=== PATIENT | male | born 1995 | race Caucasian/White ===

== ENCOUNTER 2017-05-08 03:14 | Emergency (ER) | payer BC ==
[2017-05-08 03:27] VITALS: TEMP 98.4
--- NOTE | 2017-05-08 03:35 | EDPHY ---
H & P Stated Complaint: abd pain mucous in stool x2 days HPI/ROS: HPI CHIEF COMPLAINT: Abdominal pain and mucus per rectum. HISTORY OF PRESENT ILLNESS: This patient otherwise healthy 21-year-old male no significant medical history he presents emergency room with diffuse crampy abdominal pain worse in his lower abdomen and passing mucus every 20 minutes per rectum. Denies diarrhea. Denies bloody stools. He does feel nauseous. Also feels lightheadedness. No fever. He states that he was out of town at a music concert in [place] this weekend. On Monday he developed some diffuse kind of crampy abdominal pain not feel well he stop drinking alcohol. Had little p.o. food intake. Symptoms persisted with abdominal pain of the Monday he flew back to [place]. He landed in [place] at 7:00 p.m.. Continued to have mucus per rectum every 20 minutes with abdominal pain. He decided come the emergency room for evaluation. Denies fever. Denies chest pain or shortness of breath. Denies urinary symptoms. No blood per rectum. Past Medical History: Denies significant medical history Past Surgical History: Denies significant surgical history Social History: Denies daily use of drugs alcohol tobacco products. Did have alcohol this weekend. Smokes marijuana. Family History: Noncontributory ROS REVIEW OF SYSTEMS: A comprehensive 10 point review of systems is otherwise negative aside from elements mentioned in the history of present illness. Exam Constitutional appears well nontoxic, triage nursing summary reviewed, vital signs reviewed, awake/alert. Eyes normal conjunctivae and sclera, EOMI, PERRLA. HENT normal inspection, atraumatic, moist mucus membranes, no epistaxis, neck supple/ no meningismus, no raccoon eyes. Respiratory clear to auscultation bilaterally, normal breath sounds, no respiratory distress, no wheezing. Cardiovascular rate normal, regular rhythm, no murmur, no edema, distal pulses normal. Gastrointestinal soft mild tenderness to palpation diffusely, no rebound, no guarding, normal bowel sounds, no distension, no pulsatile mass. Genitourinary no CVA tenderness. Musculoskeletal no midline vertebral tenderness, full range of motion, no calf swelling, no tenderness of extremities, no meningismus, good pulses, neurovascularly intact. Skin pink, warm, & dry, no rash, skin atraumatic. Neurologic awake, alert and oriented x 3, AAOx3, moves all 4 extremities equally, motor intact, sensory intact, CN II-XII intact, normal cerebellar, normal vision, normal speech. Psychiatric normal mood/affect. Heme/Lymph/Immune no lymphadenopathy. Differential diagnosis includes but is not limited to and in no particular order : Bowel obstruction, appendicitis, gallbladder disease, diverticulitis, colitis , enteritis, perforated viscus, gastritis, GERD, esophagitis, urinary tract infection, pyelonephritis, kidney stones Medical Decision Making: Plan for this patient IV establishment IV fluid bolus , check blood work CBC and electrolytes, CT scan abdomen pelvis with IV contrast. Stool studies. Rule out colitis. Re-evaluation: CT scan of the abdomen pelvis with IV contrast The results of the study are negative for acute inflammatory process. The study was read by Dr. Angela I viewed the images myself on the PACS system. 0522: Re-examination at this time patient resting comfortably no vomiting. He was able to provide a stool sample. He understands call 24 hours about a stool results. I will start him on Flagyl given that he is having mucousy diarrhea. Mainly mucus. No blood. His blood work has been reviewed and is reassuring. CT scan does not show acute inflammatory process. No evidence colitis. However clinically may have colitis. Stool culture pending. 1st dose of Flagyl given in the emergency room. Return precautions given. He understands return emergency room if develops worsening abdominal pain fever vomiting. Source: Patient - Personal History Current Tetanus/Diphtheria Vaccine: Yes Current Tetanus Diphtheria and Acellular Pertussis (TDAP): Yes - Medical/Surgical History Hx Asthma: No Hx Chronic Respiratory Disease: No Hx Diabetes: No Hx Cardiac Disease: No Hx Renal Disease: No Hx Cirrhosis: No Hx Alcoholism: No Hx HIV/AIDS: No Hx Splenectomy or Spleen Trauma: No Other PMH: tonsils ,. wisdom teeth - Social History Smoking Status: Current some day smoker Constitutional: Initial Vital Signs Temperature (C) 36.9 C 05/08/17 03:25 Heart Rate 81 05/08/17 03:25 Respiratory Rate 18 05/08/17 03:25 Blood Pressure 156/102 H 05/08/17 03:25 O2 Sat (%) 95 05/08/17 03:25 O2 Delivery Mode Room Air Allergies/Adverse Reactions: No Known Allergies Allergy (Unverified 05/08/17 03:25) Home Medications: Medication Instructions Recorded Hydrocodone/APAP 5/325 [[place] 1 - 2 tab PO Q4H PRN #10 tab 05/08/17 5/325] METHYLPHENIDATE HCL [[place] 36 05/08/17 mg] Ondansetron HCl [Zofran] 4 mg PO Q4-6PRN PRN #10 tablet 05/08/17 metroNIDAZOLE [Flagyl 500 mg (*)] 500 mg PO BID #20 tab 05/08/17 Medical Decision Making - Data Points Laboratory Results: Laboratory Results 05/08/17 03:26 05/08/17 03:26 05/08/17 05/08/17 05/08/17 03:35 03:26 03:26 WBC 8.10 10^3/uL 10^3/uL (3.80-9.50) RBC 6.27 10^6/uL 10^6/uL (4.40-6.38) Hgb 17.7 g/dL H g/dL (13.7-17.5) Hct 51.9 % H % (40.0-51.0) MCV 82.8 fL fL (81.5-99.8) MCH 28.2 pg pg (27.9-34.1) MCHC 34.1 g/dL g/dL (32.4-36.7) RDW 12.7 % % (11.5-15.2) Plt Count 178 10^3/uL 10^3/uL (150-400) MPV 9.9 fL fL (8.7-11.7) Neut % (Auto) 67.9 % % (39.3-74.2) Lymph % (Auto) 20.0 % % (15.0-45.0) [place] % (Auto) 10.9 % % (4.5-13.0) Eos % (Auto) 0.6 % % (0.6-7.6) Baso % (Auto) 0.4 % % (0.3-1.7) Nucleat RBC Rel Count 0.0 % % (0.0-0.2) Absolute Neuts (auto) 5.50 10^3/uL 10^3/uL (1.70-6.50) Absolute Lymphs (auto) 1.62 10^3/uL 10^3/uL (1.00-3.00) Absolute Monos (auto) 0.88 10^3/uL H 10^3/uL (0.30-0.80) Absolute Eos (auto) 0.05 10^3/uL 10^3/uL (0.03-0.40) Absolute Basos (auto) 0.03 10^3/uL 10^3/uL (0.02-0.10) Absolute Nucleated RBC 0.00 10^3/uL 10^3/uL (0-0.01) Immature Gran % 0.2 % % (0.0-1.1) Immature Gran # 0.02 10^3/uL 10^3/uL (0.00-0.10) Sodium 141 mEq/L mEq/L (134-144) Potassium 3.6 mEq/L mEq/L (3.5-5.2) Chloride 99 mEq/L mEq/L (97-110) Carbon Dioxide 24 mEq/l mEq/l (22-31) Anion Gap 18 mEq/L H mEq/L (8-16) BUN 17 mg/dL mg/dL (7-23) Creatinine 1.1 mg/dL mg/dL (0.7-1.3) Estimated GFR > 60 Glucose 103 mg/dL H mg/dL (70-100) Calcium 10.4 mg/dL mg/dL (8.5-10.4) Total Bilirubin 0.8 mg/dL mg/dL (0.1-1.4) Conjugated Bilirubin 0.3 mg/dL mg/dL (0.0-0.5) Unconjugated Bilirubin 0.5 mg/dL mg/dL (0.0-1.1) AST 27 IU/L IU/L (17-59) ALT 54 IU/L IU/L (21-72) Alkaline Phosphatase 69 IU/L IU/L (38-126) Total Protein 9.0 g/dL H g/dL (6.3-8.2) Albumin 5.3 g/dL H g/dL (3.5-5.0) Lipase 1016 IU/L H IU/L (23-300) Urine Color TOMAS Urine Appearance HAZY Urine pH 6.0 (5.0-7.5) Ur Specific [place] > 1.035 H (1.002-1.030) Urine Protein 2+ H (NEGATIVE) Urine Ketones NEGATIVE (NEGATIVE) Urine Blood 3+ H (NEGATIVE) Urine Nitrate NEGATIVE (NEGATIVE) Urine Bilirubin NEGATIVE (NEGATIVE) Urine Urobilinogen NEGATIVE EU EU (0.2-1.0) Ur Leukocyte Esterase NEGATIVE (NEGATIVE) Urine RBC 15-25 /hpf H /hpf (0-3) Urine WBC 1-3 /hpf /hpf (0-3) Ur Epithelial Cells TRACE /lpf /lpf (NONE-1+) Urine Mucus 4+ /lpf H /lpf (NONE-1+) Urine Glucose NEGATIVE (NEGATIVE) Medications Given: Discontinued Medications Sodium Chloride (Ns) 1,000 mls @ 0 mls/hr IV EDNOW ONE; Wide Open PRN Reason: Protocol Stop: 05/08/17 03:44 Last Admin: 05/08/17 03:46 Dose: 1,000 mls Departure - Departure Disposition: Home, Routine, Self-Care Clinical Impression: Abdominal pain Qualifiers: Abdominal location: generalized Qualified Code(s): R10.84 - Generalized abdominal pain Condition: Good Instructions: Abdominal Pain (ED) Additional Instructions: 1. Please return emergency room if develops worsening abdominal pain fever vomiting. 2. Call in 24 hours about her stool study. 3. Antibiotics as prescribed. Referrals: NONE *PRIMARY CARE P,. [Primary Care Provider] - As per Instructions Prescriptions: Hydrocodone/APAP 5/325 [[place] 5/325] 1 - 2 tab PO Q4H PRN #10 tab PRN Reason: Pain, Moderate metroNIDAZOLE [Flagyl 500 mg (*)] 500 mg PO BID #20 tab Ondansetron HCl [Zofran] 4 mg PO Q4-6PRN PRN #10 tablet PRN Reason: Nausea/Vomiting, Use 1st
[2017-05-08] MEDS ORDERED: NS 1,000 ML IV ONE (03:43)
[2017-05-08 04:06] LABS: % IMMATURE GRANULYOCYTES 0.2 % (0.0-1.1); ABSOLUTE IMMATURE GRANULOCYTES 0.02 10^3/uL (0.00-0.10); ADD DIFF? NO; ADD MORPH? NO; ADD SCAN? NO; ATYPICAL LYMPHOCYTE FLAG 10 (0-99); FRAGMENT RBC FLAG 0 (0-99); HEMATOCRIT 51.9 % (40.0-51.0); HEMOGLOBIN 17.7 g/dL (13.7-17.5); LEFT SHIFT FLG 0 (0-99); LIPEMIA HEMOLYSIS FLAG 90 (0-99); MEAN CELL HEMOGLOBIN 28.2 pg (27.9-34.1); MEAN CELL HEMOGLOBIN CONCENTR. 34.1 g/dL (32.4-36.7); MEAN CELL VOLUME 82.8 fL (81.5-99.8); MEAN PLATELET VOLUME 9.9 fL (8.7-11.7); PLATELET CLUMPS FLAG 20 (0-99); PLATELET COUNT 178 10^3/uL (150-400); RED BLOOD CELL COUNT 6.27 10^6/uL (4.40-6.38); RED CELL DISTRIBUTION WIDTH 12.7 % (11.5-15.2)
[2017-05-08 04:07] LABS: COLOR AMBER; LEUKOCYTE ESTERASE,URINE NEGATIVE (NEGATIVE); NITRITE,URINE NEGATIVE (NEGATIVE)
[2017-05-08 04:15] LABS: ALANINE AMINOTRANSFERASE 54 IU/L (21-72); ALBUMIN 5.3 g/dL (3.5-5.0); ALKALINE PHOSPHATASE 69 IU/L (38-126); ANION GAP 18 mEq/L (8-16); ASPARTATE AMINOTRANSFERASE 27 IU/L (17-59); BILIRUBIN,TOTAL 0.8 mg/dL (0.1-1.4); BILIRUBIN-CONJUGATED 0.3 mg/dL (0.0-0.5); BILIRUBIN-UNCONJUGATED 0.5 mg/dL (0.0-1.1); CALCIUM 10.4 mg/dL (8.5-10.4); CARBON DIOXIDE 24 mEq/l (22-31); CHLORIDE 99 mEq/L (97-110); CREATININE 1.1 mg/dL (0.7-1.3); GLOMERULAR FILTRATION RATE > 60; GLUCOSE 103 mg/dL (70-100); POTASSIUM 3.6 mEq/L (3.5-5.2); SODIUM 141 mEq/L (134-144)
[2017-05-08 04:19] LABS: MUCUS 4+ /lpf (NONE-1+); RBC,URINE 15-25 /hpf (0-3)
[2017-05-08] MEDS ORDERED: IOPAMIDOL (ISOVUE-300) 100 ML BTL ONE (04:23)
[2017-05-08] MEDS ORDERED: metroNIDAZOLE 500 MG TAB PO ONE (05:21)
[2017-05-08] MEDS ORDERED: ONDANSETRON 4 MG/2 ML VIAL ONE (05:39)
[2017-05-08] MEDS ORDERED: ONDANSETRON 4 MG/2 ML VIAL IVP ONE (05:40)
[2017-05-08 07:02] VITALS: BP 130/77; PULSE 70; RESP 16; O2SAT 96
== END 2017-05-08 06:50 | disposition home or self-care (01) ==
DX: R10.84 Generalized abdominal pain (principal); F17.200 Nicotine dependence, unspecified, uncomplicated; E86.9 Volume depletion, unspecified
CPT/HCPCS: 96374; J2405; Q9967

== ENCOUNTER 2017-09-19 19:20 | Emergency (ER) | payer BC ==
[2017-09-19] MEDS ORDERED: NS 1,000 ML IV ONE ×2 (19:52)
[2017-09-19] MEDS ORDERED: ONDANSETRON 4 MG/2 ML VIAL IVP ONE (19:52)
--- NOTE | 2017-09-19 20:02 | EDPHY ---
H & P Stated Complaint: Nausea vomiting and diarrhea Source: Patient Exam Limitations: No limitations - Personal History Current Tetanus/Diphtheria Vaccine: Yes - Medical/Surgical History Hx Asthma: No Hx Chronic Respiratory Disease: No Hx Diabetes: No Hx Cardiac Disease: No Hx Renal Disease: No Hx Cirrhosis: No Hx Alcoholism: No Hx HIV/AIDS: No Hx Splenectomy or Spleen Trauma: No Other PMH: tonsils ,. wisdom teeth. NO MARIJUANA X 2 DAYS - Family History Significant Family History: No pertinent family hx - Social History Smoking Status: Current some day smoker Alcohol Use: Occasionally Drug Use: None Time Seen by Provider: 09/19/17 19:41 HPI/ROS: CHIEF COMPLAINT: Nausea vomiting and diarrhea HISTORY OF PRESENT ILLNESS: Patient is a 22-year-old man who comes to the emergency department complaining of nausea vomiting and diarrhea since early this morning. He states that his diarrhea looks similar to his last ER visit in the fall when he was diagnosed with Campylobacter. He was treated with azithromycin and felt much better. He states that he was drinking heavily last night and often vomits the next day but not persistent all day long and no diarrhea typically. He has not had a fever. No abdominal pain. No blood in his vomit or stool. No testicular pain. No urinary symptoms. He feels dehydrated. REVIEW OF SYSTEMS: Constitutional: denies: chills, fever, recent illness, recent injury EENTM: denies: blurred vision, double vision, nose congestion Respiratory: denies: cough, shortness of breath Cardiac: denies: chest pain, irregular heart rate, lightheadedness, palpitations Gastrointestinal/Abdominal: See HPI denies: abdominal pain, blood streaked stools Genitourinary: denies: dysuria, frequency, hematuria, pain Musculoskeletal: denies: joint pain, muscle pain Skin: denies: lesions, rash, jaundice, bruising Neurological: denies: headache, numbness, paresthesia, tingling, dizziness, weakness Hematologic/Lymphatic: denies: blood clots, easy bleeding, easy bruising Immunologic/allergic: denies: HIV/AIDS, transplant EXAM: GENERAL: Well-appearing, well-nourished and in no acute distress. HEAD: Atraumatic, normocephalic. EYES: Pupils equal round and reactive to light, extraocular movements intact, sclera anicteric, conjunctiva are normal. ENT: TMs normal, nares patent, oropharynx clear without exudates. Dry mucous membranes. NECK: Normal range of motion, supple without lymphadenopathy or JVD. LUNGS: Breath sounds clear to auscultation bilaterally and equal. No wheezes rales or rhonchi. HEART: Regular rate and rhythm without murmurs, rubs or gallops. ABDOMEN: Soft, nontender, normoactive bowel sounds. No guarding, no rebound. No masses appreciated. BACK: No CVA tenderness, no spinal tenderness, step-offs or deformities EXTREMITIES: Normal range of motion, no pitting or edema. No clubbing or cyanosis. NEUROLOGICAL: Cranial nerves II through XII grossly intact. Normal speech, normal gait. 5/5 strength, normal movement in all extremities, normal sensation PSYCH: Normal mood, normal affect. SKIN: Warm, dry, normal turgor, no visible rashes or lesions. (Eduardo Means) Constitutional: Initial Vital Signs Temperature (C) 36.9 C 09/19/17 19:23 Heart Rate 88 09/19/17 19: Respiratory Rate 18 09/19/17 19:23 Blood Pressure 124/88 H 09/19/17 19:23 O2 Sat (%) 94 09/19/17 19:23 O2 Delivery Mode Room Air Allergies/Adverse Reactions: No Known Allergies Allergy (Unverified 09/19/17 19:24) Home Medications: Medication Instructions Recorded METHYLPHENIDATE HCL [[place] 36 05/08/17 mg] Marijuana 09/19/17 Ondansetron Odt [Zofran Odt] 4 mg PO Q4PRN PRN #4 tab 09/19/17 Medical Decision Making ED Course/Re-evaluation: Patient seen by me at 9:30 p.m.. Despite the Zofran the patient still somewhat symptomatic. He is given Haldol and Benadryl IV Re-evaluation 10:15 p.m.--patient tells me he is feeling so much better. No nausea or vomiting. He is taking oral fluids 10:30 p.m. Re-evaluation patient tells me he feels well and would like to go home. No nausea or vomiting. (Lul Benavides) 9:10 p.m. the patient's abdominal exam remains benign. He is complaining some heartburn. I will give him a GI cocktail and continue to hydrate. Care transferred to Dr. Lul Benavides chief change. (Eduardo Means) Differential Diagnosis: This may be gastroenteritis. It is possible that cyclic vomiting syndrome or food poisoning. (Lul Benavides) - Data Points Medications Given: Discontinued Medications Al Hydroxide/Mg Hydroxide (Maalox Susp) 30 ml PO ONCE ONE Stop: 09/19/17 21:08 Last Admin: 09/19/17 22:40 Dose: Not Given Diphenhydramine HCl (Benadryl Injection) 12.5 mg IVP EDNOW ONE Stop: 09/19/17 21:42 Last Admin: 09/19/17 21:49 Dose: 12.5 mg Haloperidol Lactate (Haldol Injection) 5 mg IVP EDNOW ONE Stop: 09/19/17 21:41 Last Admin: 09/19/17 21:50 Dose: 5 mg Hyoscyamine Sulfate (Levsin, Hyomax-Sl) 0.25 mg PO ONCE ONE Stop: 09/19/17 21:08 Last Admin: 09/19/17 22:40 Dose: Not Given Sodium Chloride (Ns) 1,000 mls @ 0 mls/hr IV EDNOW ONE; Wide Open PRN Reason: Protocol Stop: 09/19/17 19:53 Last Admin: 09/19/17 19:59 Dose: 1,000 mls Sodium Chloride (Ns) 1,000 mls @ 0 mls/hr IV EDNOW ONE; Wide Open PRN Reason: Protocol Stop: 09/19/17 19:53 Last Admin: 09/19/17 20:00 Dose: 1,000 mls Lidocaine (Lidocaine 2% Viscous) 15 ml PO ONCE ONE Stop: 09/19/17 21:08 Last Admin: 09/19/17 22:40 Dose: Not Given Metoclopramide HCl (Reglan Injection) 10 mg IVP EDNOW ONE Stop: 09/19/17 21:13 Last Admin: 09/19/17 21:19 Dose: 10 mg Ondansetron HCl (Zofran) 4 mg IVP EDNOW ONE Stop: 09/19/17 19:53 Last Admin: 09/19/17 20:00 Dose: 4 mg Ondansetron HCl (Zofran Odt 4 Mg Prepack#2) 1 btl TAKEHOME EDNOW ONE Stop: 09/19/17 22:18 Last Admin: 09/19/17 22:39 Dose: 1 btl Departure - Departure Disposition: Home, Routine, Self-Care Clinical Impression: Acute gastroenteritis Condition: Good Instructions: Ondansetron (By mouth), Gastroenteritis (ED) Additional Instructions: Frequent, small sips fluids. Gradual diet advancement. Zofran every 4 hr if needed for nausea and vomiting. Return for worsening symptoms. Recheck in 1 day if not better Referrals: NONE *PRIMARY CARE P,. [Primary Care Provider] - As per Instructions Prescriptions: Ondansetron Odt [Zofran Odt] 4 mg PO Q4PRN PRN #4 tab PRN Reason: Nausea/Vomiting, Use 1st
[2017-09-19] MEDS ORDERED: HYOSCYAMINE SULFATE 0.125 MG TAB PO ONE (21:07)
[2017-09-19] MEDS ORDERED: LIDOCAINE 2% VISCOUS 15 ML UDCUP PO ONE (21:07)
[2017-09-19] MEDS ORDERED: MAG HYDROX/AL HYDROX/SIMETH 30 ML UDCUP PO ONE (21:07)
[2017-09-19] MEDS ORDERED: METOCLOPRAMIDE 10 MG/2 ML VIAL IVP ONE (21:12)
[2017-09-19] MEDS ORDERED: HALOPERIDOL LACT 5 MG/ML INJ IVP ONE (21:40)
[2017-09-19] MEDS ORDERED: ONDANSETRON 4MG PREPACK#2 BTL TAKEHOME ONE (22:17)
[2017-09-19 22:37] VITALS: BP 148/61; PULSE 102; RESP 18; TEMP 97.7; O2SAT 95
== END 2017-09-19 22:40 | disposition home or self-care (01) ==
DX: K52.9 Noninfective gastroenteritis and colitis, unspecified (principal); E86.9 Volume depletion, unspecified; F17.200 Nicotine dependence, unspecified, uncomplicated
CPT/HCPCS: 96374; J1200; J1630; J2405; J2765